=== PATIENT | female | born 1985 | race Hispanic/Latino ===

== ENCOUNTER 2019-01-02 08:44 | Inpatient (IN) | payer SELFPAY ==
[~2019-01-02] VITALS: Ht 165.1 cm; Wt 85.3 kg
[2019-01-02 09:46] LABS: HEMATOCRIT 40.7 % (36-48); MEAN CORPUSCULAR HEMOGLOBIN 31.3 pg (27.0-33.0); MEAN CORPUSCULAR VOLUME 90.8 fL (79-99); RED BLOOD CELL COUNT(AUTO) 4.48 MIL/uL (4.00-5.50); WHITE BLOOD COUNT (AUTO) 7.5 K/uL (4.8-10.8)
[2019-01-02 09:47] LABS: BASOPHILS % (AUTO) 0.8 % (0.0-5.0); EOSINOPHILS % (AUTO) 2.4 % (0.0-8.0); LYMPHOCYTES % (AUTO) 20.9 % (21.0-51.0); MEAN CORPUSCULAR HGB CONC 34.5 g/dL (32.0-36.0); MONOCYTES % (AUTO) 6.5 % (3.0-13.0); NEUTROPHILS % (AUTO) 69.4 % (40.0-77.0); NUCLEATED RED BLOOD CELLS 0.1 % (0.0-0.19); PLATELET COUNT (AUTO) 215 K/uL (130-400); RED CELL DISTRIBUTION WIDTH 12.6 % (11.0-15.5)
[2019-01-02 09:57] LABS: APPEARANCE,URINE Clear (CLEAR); BILIRUBIN,URINE Negative (NEGATIVE); COLOR,URINE Yellow (YELLOW); GLUCOSE, URINE (UA) Negative (NEGATIVE); KETONES,URINE Negative (NEGATIVE); LEUKOCYTE ESTERASE ,URINE Negative (NEGATIVE); NITRATE,URINE Negative (NEGATIVE); OCCULT BLOOD,URINE Moderate (NEGATIVE); PROTEIN,URINE Negative (NEGATIVE); UROBILINOGEN,URINE 0.2 mg/dL (0.2-1.0)
[2019-01-02 10:00] LABS: HCG,QUAL RESULT NEGATIVE (NEGATIVE)
[2019-01-02 10:02] LABS: CREATININE 0.5 mg/dL (0.5-1.5); POTASSIUM 3.5 mmol/L (3.5-5.1)
[2019-01-02 10:04] LABS: AMPHET/METH SCREEN,URINE NEGATIVE (NEGATIVE); BARBITURATE SCREEN, URINE NEGATIVE (NEGATIVE); BENZODIAZEPINES SCREEN,URINE NEGATIVE (NEGATIVE); CANNABINOID SCREEN,URINE NEGATIVE (NEGATIVE); COCAINE SCREEN,URINE NEGATIVE (NEGATIVE); OPIATE SCREEN,URINE NEGATIVE (NEGATIVE); PHENCYCLIDINE SCREEN,URINE NEGATIVE (NEGATIVE)
[2019-01-02 10:07] LABS: ALBUMIN 3.9 g/dL (3.5-5.0); BILIRUBIN,TOTAL 0.4 mg/dL (0.2-1.0); TOTAL PROTEIN, SERUM 7.7 g/dL (6.0-8.3)
[2019-01-02 10:13] LABS: BACTERIA,URINE Rare /HPF (None Seen); SQUAMOUS EPITHELIAL CELL,UR Rare /HPF (0-2); WBC,URINE 0-1 /HPF (0-1)
[2019-01-02 10:24] LABS: INR 0.95 (0.85-1.15); PARTIAL THROMBOPLASTIN TIME 27.1 SEC (26.3-35.5)
[2019-01-02] MEDS ORDERED: ASPIRIN 325 MG TABLET ONE (11:01)
[2019-01-02] MEDS: LOSARTAN 50 MG TABLET PO SCH (12:00)
[2019-01-02] MEDS: METFORMIN HCL 500 MG TABLET PO SCH ×2 (12:00→17:00)
[2019-01-02] MEDS ORDERED: ACETAMINOPHEN 325 MG TAB PO PRN (12:00)
[2019-01-02] MEDS ORDERED: HYDRALAZINE HCL 20 MG/ML VIAL IV PRN (12:00)
[2019-01-02] MEDS: ASPIRIN 81MG TAB.CHEW PO SCH (12:15)
[2019-01-02] MEDS ORDERED: ENOXAPARIN SODIUM 40 MG/0.4 ML SYRINGE SQ ONE (13:39)
[2019-01-02] MEDS ORDERED: METFORMIN HCL 500 MG TABLET ONE (13:39)
--- NOTE | 2019-01-02 16:15 | NUR ---
JOAN ARANA met with pt who lives with her life partner Carin Kimble [phone] at pt's father's home [facility]. pt states she is independent, no DME or HH. Pt has no PCP or rx coverage. Pt is non complaint with DM meds and care. Plan is home at fl Addendum: 01/02/19 at 1617 by BRUNO QUIÑONEZ Amended: Links added.
[2019-01-02] MEDS ORDERED: ATORVASTATIN CALCIUM 20 MG TABLET PO SCH (21:00)
[2019-01-02] MEDS: FAMOTIDINE/PF 20 MG/2 ML VIAL IV SCH (21:00)
[2019-01-02] MEDS ORDERED: FAMOTIDINE 20MG TAB 20 MG TAB ONE (21:29)
[2019-01-02] MEDS ORDERED: ATORVASTATIN CALCIUM 40 MG TABLET ONE (21:30)
[2019-01-02] MEDS ORDERED: LOSARTAN 50 MG TABLET ONE (21:30)
[2019-01-03 06:21] LABS: CHOLESTEROL 120 mg/dL (<200); HDL CHOLESTEROL 34 mg/dL (35-85); LDL DIRECT 75 mg/dL (0-99); TRIGLYCERIDES 71 mg/dL (30-200)
[2019-01-03] MEDS: METFORMIN HCL 500 MG TABLET PO SCH ×3 (08:00→16:37)
[2019-01-03] MEDS: ENOXAPARIN SODIUM 40 MG/0.4 ML SYRINGE SQ SCH (09:00)
[2019-01-03] MEDS: LOSARTAN 50 MG TABLET PO SCH (09:00)
[2019-01-03] MEDS: FAMOTIDINE/PF 20 MG/2 ML VIAL IV SCH ×2 (09:00→21:14)
[2019-01-03] MEDS: ASPIRIN 81MG TAB.CHEW PO SCH (09:00)
[2019-01-03] MEDS: INSULIN HUMULIN R 100 UNIT/ML 3ML SQ SCH ×3 (11:30→21:17)
[2019-01-03] MEDS ORDERED: METFORMIN HCL 500 MG TABLET ONE (14:17)
[2019-01-03] MEDS ORDERED: ENOXAPARIN SODIUM 40 MG/0.4 ML SYRINGE SQ ONE (14:17)
[2019-01-03 14:45] VITALS: BP 160/81
[2019-01-03] MEDS: GLIPIZIDE 5 MG TABLET PO SCH (16:37)
[2019-01-03 20:00] VITALS: BP 146/84
[2019-01-03] MEDS ORDERED: ATORVASTATIN CALCIUM 40 MG TABLET PO SCH (21:00)
[2019-01-04] VITALS: BP 156/81
[2019-01-04 04:04] VITALS: BP 124/78
[2019-01-04 04:26] LABS: HEMATOCRIT 37.3 % (36-48); MEAN CORPUSCULAR HEMOGLOBIN 30.9 pg (27.0-33.0); MEAN CORPUSCULAR HGB CONC 34.6 g/dL (32.0-36.0); MEAN CORPUSCULAR VOLUME 89.4 fL (79-99); PLATELET COUNT (AUTO) 205 K/uL (130-400); RED BLOOD CELL COUNT(AUTO) 4.17 MIL/uL (4.00-5.50); RED CELL DISTRIBUTION WIDTH 12.4 % (11.0-15.5); WHITE BLOOD COUNT (AUTO) 6.7 K/uL (4.8-10.8)
[2019-01-04 04:42] LABS: CREATININE 0.6 mg/dL (0.5-1.5); POTASSIUM 3.3 mmol/L (3.5-5.1)
[2019-01-04] MEDS: GLIPIZIDE 5 MG TABLET PO SCH (06:00)
[2019-01-04] MEDS: INSULIN HUMULIN R 100 UNIT/ML 3ML SQ SCH ×2 (06:02→11:30)
--- NOTE | 2019-01-04 07:30 | NUR ---
ASSESSMENT ENCOUNTERED PT A&OX3, CALM COOPERATIVE AND DOES NOT APPEAR TO BE IN ANY DISTRESS NOR ANY NEURO DEFICITS PRESENT. PT DENIES PAIN, SOB, NAUSEA BUT DOES C/O NUMBNESS TO RT UPPER AND LOWER EXTREMITIES. PT IS AMBULATORY, GAIT STEADY AND STRONG WITH STAND BY ASSIST. PT IS ABLE TOLERATE FOODS AND FLUIDS WITH NO THROAT CLEARING OR COUGH. CALL LIGHT WITHIN REACH.
[2019-01-04 07:49] VITALS: BP 141/80
[2019-01-04] MEDS: METFORMIN HCL 500 MG TABLET PO SCH ×2 (07:59→13:25)
[2019-01-04] MEDS: LOSARTAN 50 MG TABLET PO SCH (07:59)
[2019-01-04] MEDS: FAMOTIDINE/PF 20 MG/2 ML VIAL IV SCH (08:00)
[2019-01-04] MEDS: ENOXAPARIN SODIUM 40 MG/0.4 ML SYRINGE SQ SCH (08:00)
[2019-01-04] MEDS ORDERED: ASPIRIN 325 MG TABLET PO SCH (09:00)
[2019-01-04 11:11] VITALS: BP 145/76
[2019-01-04] MEDS ORDERED: LOSA50TA2 PO (16:59)
[2019-01-04] MEDS ORDERED: ATOR40TA69 PO (16:59)
[2019-01-04] MEDS ORDERED: ASPI-1197 PO (16:59)
[2019-01-04] MEDS ORDERED: METF-444 PO (16:59)
--- NOTE | 2019-01-04 18:12 | NUR ---
DISCHARGE INSTRUCTIONS GIVEN, PIV REMOVED AND INTACT, DISCHARGED HOME TO FAMILY VEHICLE VIA WHEELCHAIR.
== END 2019-01-04 18:06 | disposition home or self-care (01) | DRG 66 ==
LOC: EDH 08:44 → EDHIP 11:57 → 2DH 01-03 14:28
PROVIDERS: ADMIT Internal Medicine; ATTEND Internal Medicine
DX: I63.81 Other cerebral infarction due to occlusion or stenosis of small artery (principal); I10 Essential (primary) hypertension; E11.69 Type 2 diabetes mellitus with other specified complication; E78.2 Mixed hyperlipidemia; Z91.19 Patient's noncompliance with other medical treatment and regimen
CPT/HCPCS: 36415; 70450; 70544; 70551; 80048; 80053; 80061; 80305; 81001; 81025; 82948; 83036; 85025; 85027; 85610; 85730; 93306; 93880; G0378; J1650; J1815; J3490

== ENCOUNTER 2019-07-13 17:54 | Emergency (ER) | payer MEDICAID ==
[~2019-07-13 17:54] MED LIST: ASPI-1197 PO; ATOR40TA69 PO; LOSA50TA2 PO; METF-444 PO
[2019-07-13 19:08] LABS: APPEARANCE,URINE Clear (CLEAR); BILIRUBIN,URINE Negative (NEGATIVE); COLOR,URINE Yellow (YELLOW); GLUCOSE, URINE (UA) Negative (NEGATIVE); KETONES,URINE Negative (NEGATIVE); LEUKOCYTE ESTERASE ,URINE Negative (NEGATIVE); NITRATE,URINE Negative (NEGATIVE); OCCULT BLOOD,URINE Negative (NEGATIVE); PROTEIN,URINE Trace mg/dL (NEGATIVE); UROBILINOGEN,URINE 0.2 mg/dL (0.2-1.0)
[2019-07-13 19:10] LABS: BASOPHILS % (AUTO) 0.7 % (0.0-5.0); HEMATOCRIT 36.8 % (36-48); LYMPHOCYTES % (AUTO) 22.5 % (21.0-51.0); MEAN CORPUSCULAR HEMOGLOBIN 32.2 pg (27.0-33.0); MEAN CORPUSCULAR HGB CONC 34.9 g/dL (32.0-36.0); MEAN CORPUSCULAR VOLUME 92.1 fL (79-99); MONOCYTES % (AUTO) 5.1 % (3.0-13.0); NEUTROPHILS % (AUTO) 70.7 % (40.0-77.0); PLATELET COUNT (AUTO) 220 K/uL (130-400); RED BLOOD CELL COUNT(AUTO) 3.99 MIL/uL (4.00-5.50); RED CELL DISTRIBUTION WIDTH 12.5 % (11.0-15.5)
[2019-07-13 19:14] LABS: HCG,QUAL RESULT NEGATIVE (NEGATIVE)
[2019-07-13 19:20] LABS: BACTERIA,URINE Rare /HPF (None Seen); RBC,URINE 0-1 /HPF (0-1); SQUAMOUS EPITHELIAL CELL,UR Rare /HPF (0-2); WBC,URINE 0-1 /HPF (0-1)
[2019-07-13 19:23] LABS: CREATININE 0.5 mg/dL (0.5-1.5); POTASSIUM 3.5 mmol/L (3.5-5.1)
[2019-07-13 19:33] LABS: INR 0.96 (0.85-1.15); PARTIAL THROMBOPLASTIN TIME 27.2 SEC (26.3-35.5); PROTHROMBIN TIME 10.1 SEC (9.6-11.6)
[2019-07-13] MEDS ORDERED: KETOROLAC TROMETHAMINE 30MG/ML ONE (19:56)
== END 2019-07-13 20:08 | disposition home or self-care (01) ==
LOC: EDH 17:54
DX: R51 Headache (principal); R20.2 Paresthesia of skin; E11.9 Type 2 diabetes mellitus without complications; I10 Essential (primary) hypertension
CPT/HCPCS: 36415; 70450; 80048; 81001; 81025; 85025; 85610; 85730; 96372; 99285; J1885

== ENCOUNTER → 2020-06-15 | Outpatient (CLI) | payer MEDICAID ==
[~2020-06-15] MED LIST changes: +GADODIAMIDE 10 MMOL/20 ML VIAL IV ONE
== END | disposition home or self-care (01) ==
LOC: RAH 10:58
PROVIDERS: ATTEND Family Medicine
DX: M54.2 Cervicalgia (principal)
CPT/HCPCS: 72156; A9579

== ENCOUNTER → 2021-05-13 | Outpatient (CLI) | payer MEDICAID ==
[~2021-05-13] MED LIST changes: -GADODIAMIDE 10 MMOL/20 ML VIAL IV ONE; +IOHEXOL-350 50ML VIAL IV ONE
== END | disposition home or self-care (01) ==
LOC: RAH 12:29
PROVIDERS: ATTEND Family Medicine
DX: L04.0 Acute lymphadenitis of face, head and neck (principal)
CPT/HCPCS: 70492; J3490; Q9967